=== PATIENT | male | born 2000 | race Asian ===

== ENCOUNTER 2022-05-09 19:00 | Emergency (ER) | payer OTHER ==
[~2022-05-09] VITALS: Ht 180.3 cm; Wt 102.5 kg
[2022-05-09 19:12] VITALS: TEMP 98.9
[2022-05-09 20:30] VITALS: BP 169/96
== END 2022-05-09 20:30 | disposition home or self-care (01) ==
LOC: ED 19:00
PROC: 0HQGXZZ Repair Left Hand Skin, External Approach (ICD-10-PCS; principal; 2022-05-09)
DX: S61.022A Laceration with foreign body of left thumb without damage to nail, initial encounter (principal); W31.82XA Contact with other commercial machinery, initial encounter; Y93.G1 Activity, food preparation and clean up; Y92.512 Supermarket, store or market as the place of occurrence of the external cause
CPT/HCPCS: 90471; 90715; 99283